=== PATIENT | female | born 1950 | race Caucasian/White ===

== ENCOUNTER → 2017-01-09 | Outpatient (CLI) | payer MEDICARE, OTHER ==
--- NOTE | ~2017-01-09 | MY23 ---
[facility] A Service of [facility] & [facility] RADIOLOGY TEXT RESULTS PATIENT: HALEIGH ANDRES LOCATION: [facility] : 50 UNIT #: [id number] AGE: [address]: Jono Fowler MD SEX: F ORDER DR: [id number] [facility] [address] [place], [place] [address] [id number] O MR#: [id number] Acc #: [id number] NAME: HALEIGH ANDRES : 1950 SEX: F STUDY DATE/TIME: 01/09/2017 13:26 UNIT: [facility] ROOM: STUDY DESCRIPTION: MY BX Breast Add Lesion Stereo Attending Physician: Jono Fowler M.D. Referring Physician: Dominic Kyle M.D. Ordering Physician: Dominic Kyle M.D. Primary Care Physician: Generic Doctor Not In System MEDICAL IMAGING REPORT This report is preliminary unless electronic signature is present REVISED REPORT SEE ADDENDUM EXAM Stereotactic breast biopsy 01/09 INDICATIONS 2 clusters of suspicious microcalcifications seen on outside prior mammogram. Patient presents for biopsy. PROCEDURE Informed consent was obtained and time-out was performed. Patient was placed in craniocaudal compression on the stereotactic table. The cluster of calcifications more medial in the left breast as seen on the CC view were targeted stereotactically. These are adjacent to the calcifications biopsied today as well. Skin was cleaned with a ChloraPrep. 1% lidocaine without epinephrine used for local anesthesia. Small skin incision was made. A 9-gauge Eviva biopsy needle was advanced to the prefire position. Prefire imaging demonstrated appropriate needle heading toward the calcifications. The needle was then fired into biopsy position. Post-fire images also demonstrated appropriate needle placement. And, at target depth, multiple 9-gauge vacuum-assisted cores were obtained in a concentric fashion. Specimen radiograph demonstrates multiple calcifications within the specimen demonstrating an adequate biopsy. Of note, 1% lidocaine with epinephrine was infused through the needle during the biopsy procedure. A marking clip was left in place. It is in the expected location on the postprocedure mammogram. There are no immediate complications. Hemostasis was achieved using direct compression. IMPRESSION Successful stereotactic biopsy of a more medial cluster of STS. [facility] A Service of [facility] & [facility] RADIOLOGY TEXT RESULTS PATIENT: HALEIGH ANDRES LOCATION: [facility] : 50 UNIT #: [id number] AGE: [address]: Jono Fowler MD SEX: F ORDER DR: microcalcifications when viewed on the CC view. Multiple calcifications are seen within the specimen. Marking clip in place. Dictated by... Jono Galeas Jr., M.D. THIS IS AN ELECTRONICALLY VERIFIED REPORT Jono Galeas Jr., M.D. at 01/09/2017 4:41 PM KAMERON/christopher TD: 01/09/2017 16:02 JOB #: [id number] ADDENDUM EXAM Stereotactic breast biopsy additional lesion, 01/09/2017 ADDENDUM Pathology results have been received. Pathology results demonstrate benign breast parenchyma with focal adenosis, columnar cell change, hyalinized stroma, and scattered microcalcifications. No malignancy is identified. Imaging results and pathology results are concordant. Patient should continue with routine yearly mammographic screening. JOB #: [id number] Dictated by... Jono Galeas Jr., M.D. THIS IS AN ELECTRONICALLY VERIFIED REPORT Jono Galeas Jr., M.D. at 01/16/2017 8:50 AM KAMERON/jeb TD: 01/16/2017 00:34 JOB #: [id number] MEDICAL IMAGING REPORT Page 1 of 1 COPY
--- NOTE | ~2017-01-09 | MY22 ---
[facility] A Service of [facility] & [facility] RADIOLOGY TEXT RESULTS PATIENT: HALEIGH ANDRES LOCATION: [facility] : 50 UNIT #: [id number] AGE: [address]: Jono Fowler MD SEX: F ORDER DR: [id number] [facility] [address] [place], [place] [address] [id number] O MR#: [id number] Acc #: [id number] NAME: HALEIGH ANDRES : 1950 SEX: F STUDY DATE/TIME: 01/09/2017 12:19 UNIT: [facility] ROOM: STUDY DESCRIPTION: KRISTEN BX Breast 1st Lesion Stereo Attending Physician: Jono Fowler M.D. Referring Physician: Dominic Kyle M.D. Ordering Physician: Jono Fowler M.D. Primary Care Physician: Generic Doctor Not In System MEDICAL IMAGING REPORT This report is preliminary unless electronic signature is present REVISED REPORT SEE ADDENDUM EXAM Stereotactic breast biopsy 01/09 INDICATIONS 2 clusters of calcifications deemed suspicious on outside recent mammogram. Patient presents for biopsy. PROCEDURE Informed consent was obtained and time out was performed. Patient was placed in craniocaudal position on the stereotactic table. The more lateral group of calcifications was targeted first, as seen on the CC view. The skin was cleaned with ChloraPrep. 1% lidocaine without epinephrine used for local anesthesia in the skin and deep tissues. Small skin incision was made. The 9-gauge EVIVA biopsy needle was advanced into the pre-fire position. Pre-fire images demonstrated appropriate needle heading. Then, the needle was fired to biopsy position. Post-fire images also demonstrated appropriate needle heading. Then, at target depth, multiple 9-gauge vacuum-assisted cores were obtained. Specimen radiograph does demonstrate a few faint calcifications within the specimen demonstrating adequate biopsy. Of note, 1% lidocaine with epinephrine was infused through the needle during the biopsy procedure. A marking clip was subsequently left in place. It is in the expected location on the post-procedure mammogram. No immediate complications. Hemostasis was achieved with direct compression. IMPRESSION Successful stereotactic biopsy of calcifications. The cluster more lateral in the right breast, as seen on the CC view, was biopsied first. Marker clip in place. No immediate complication. [facility] A Service of [facility] & [facility] RADIOLOGY TEXT RESULTS PATIENT: HALEIGH ANDRES LOCATION: [facility] : 50 UNIT #: [id number] AGE: [address]: Jono Fowler MD SEX: F ORDER DR: Dictated by... Jono Galeas Jr., M.D. THIS IS AN ELECTRONICALLY VERIFIED REPORT Jono Galeas Jr., M.D. at 01/09/2017 4:40 PM KAMERON/cristela TD: 01/09/2017 16:01 JOB #: [id number] ADDENDUM EXAM Stereotactic breast biopsy, 01/09/2017 ADDENDUM Pathology results demonstrate benign breast parenchyma with focal adenosis, hyalinized stroma, and scattered microcalcifications. No malignancy. Imaging results and pathology results are concordant. Patient should continue with routine yearly screening. JOB #: [id number] Dictated by... Jono Galeas Jr., M.D. THIS IS AN ELECTRONICALLY VERIFIED REPORT Jono Galeas Jr., M.D. at 01/16/2017 8:50 AM KAMERON/jeb TD: 01/16/2017 00:27 JOB #: [id number] MEDICAL IMAGING REPORT Page 1 of 1 COPY
== END | disposition home or self-care (01) ==
LOC: CWCC 10:51
DX: N60.21 Fibroadenosis of right breast (principal)
CPT/HCPCS: 88305; G0204